=== PATIENT | female | born 1990 | race Caucasian/White ===

== ENCOUNTER → 2017-08-25 | Outpatient (CLI) | payer OTHER ==
[~2017-08-25] MED LIST: OPTIRAY 320 IV PRN
--- NOTE | 2017-08-25 14:05 | DIAGNOSTIC IMAGING REPORT ---
ABDOMEN AND PELVIS CT CT DOSE: 572.18 mGy.cm HISTORY: RT LOWER QUAD ABD PAIN TECHNIQUE: Multiaxial CT images of the abdomen and pelvis were performed following the use of intravenous and oral contrast. Noncontrast imaging of the abdomen and pelvis was also obtained. A dose lowering technique was utilized adhering to the principles of ALARA. COMPARISON STUDY: None. FINDINGS: The lung bases are clear. No pneumoperitoneum. No pneumatosis. No fractures within the visualized osseous structures. The liver, spleen, adrenal glands, pancreas, gallbladder, and right kidney are unremarkable. No renal or ureteral stones. No hydronephrosis. There is a 1.7 cm hyperdense lesion within the upper pole the left kidney. This demonstrates borderline enhancement. This favors a hyperdense cyst. No retroperitoneal lymphadenopathy. No bowel wall thickening or obstruction. The uterus, ovaries, and bladder are unremarkable. The proximal appendix fills with gas and contrast and measures up to 7.6 mm in diameter. The distal appendix is fluid-filled and measures up to 6.1 mm in diameter. There is no periappendiceal fat stranding to suggest acute appendicitis. IMPRESSION: 1. No bowel wall thickening or obstruction. 2. No renal or ureteral calculi. No hydronephrosis. 3. The appendix is borderline distended. However, there is no periappendiceal fat stranding to suggest acute appendicitis. 4. A 1.7 cm hyperdense lesion within the upper pole of the left kidney which demonstrates borderline enhancement. This favors a hyperdense cyst. Follow-up nonemergent renal ultrasound is recommended for confirmation. Electronically signed by: Maximus Ortega M.D. 08/25/2017 2:04 PM Dictated Date/Time: 08/25/2017 1:51 PM
== END | disposition home or self-care (01) ==
LOC: C.CTS 11:17
PROVIDERS: ATTEND Internal Medicine Gastroenterology
DX: R10.31 Right lower quadrant pain (principal); N28.9 Disorder of kidney and ureter, unspecified